=== PATIENT | male | born 1935 | race Caucasian/White ===

== ENCOUNTER 2016-12-30 17:59 | Inpatient (IN) | payer MEDICARE, OTHER ==
[~2016-12-30] VITALS: Ht 180.3 cm; Wt 97.0 kg
[2016-12-30 18:31] LABS: HEMOGLOBIN 12.3 gm/dl (14.0-17.5); RED BLOOD COUNT 4.09 M/UL (4.20-5.50)
[2016-12-30 18:32] LABS: WHITE BLOOD COUNT 33.9 K/UL (4.5-11.0)
[2016-12-30] MEDS ORDERED: PRILOSEC OTC20 MG PO (21:56)
[2016-12-30] MEDS ORDERED: SYNTHROID 88 M88 MCG PO (21:57)
[2016-12-30] MEDS ORDERED: LASIX20 MG PO (21:58)
[2016-12-30] MEDS ORDERED: DILTIAZEM ER300 M1 PO (21:58)
[2016-12-30] MEDS ORDERED: DIABETA 5 MG TAB5 MG PO (21:59)
[2016-12-30] MEDS ORDERED: LISINOPRIL40 MG PO (22:00)
[2016-12-30] MEDS ORDERED: PROAIR HFA8.5 GM INH (22:00)
[2016-12-31 05:05] LABS: HEMOGLOBIN 10.9 gm/dl (14.0-17.5); RED BLOOD COUNT 3.7 M/UL (4.20-5.50)
[2016-12-31 05:07] LABS: WHITE BLOOD COUNT 18.7 K/UL (4.5-11.0)
[2017-01-01 04:43] LABS: HEMOGLOBIN 10.7 gm/dl (14.0-17.5); RED BLOOD COUNT 3.61 M/UL (4.20-5.50); WHITE BLOOD COUNT 18.6 K/UL (4.5-11.0)
[2017-01-02 05:10] LABS: HEMOGLOBIN 10.1 gm/dl (14.0-17.5); RED BLOOD COUNT 3.46 M/UL (4.20-5.50); WHITE BLOOD COUNT 17.8 K/UL (4.5-11.0)
[2017-01-02 05:28] LABS: BUN/CREATININE RATIO 25 (0-10)
[2017-01-03 04:17] LABS: RED BLOOD COUNT 3.39 M/UL (4.20-5.50)
[2017-01-03 04:21] LABS: WHITE BLOOD COUNT 12.2 K/UL (4.5-11.0)
[2017-01-04 04:04] LABS: HEMOGLOBIN 10.2 gm/dl (14.0-17.5); RED BLOOD COUNT 3.5 M/UL (4.20-5.50); WHITE BLOOD COUNT 11.2 K/UL (4.5-11.0)
[2017-01-05 04:00] LABS: HEMOGLOBIN 10.5 gm/dl (14.0-17.5); RED BLOOD COUNT 3.55 M/UL (4.20-5.50); WHITE BLOOD COUNT 12.2 K/UL (4.5-11.0)
[2017-01-06 04:34] LABS: HEMOGLOBIN 10.2 gm/dl (14.0-17.5); RED BLOOD COUNT 3.49 M/UL (4.20-5.50); WHITE BLOOD COUNT 12.8 K/UL (4.5-11.0)
[2017-01-07 03:45] LABS: HEMOGLOBIN 10.3 gm/dl (14.0-17.5); RED BLOOD COUNT 3.51 M/UL (4.20-5.50); WHITE BLOOD COUNT 12.4 K/UL (4.5-11.0)
[2017-01-07 04:11] LABS: BUN/CREATININE RATIO 43 (0-10)
[2017-01-08 03:40] LABS: HEMOGLOBIN 10.6 gm/dl (14.0-17.5); RED BLOOD COUNT 3.58 M/UL (4.20-5.50); WHITE BLOOD COUNT 12.9 K/UL (4.5-11.0)
[2017-01-08 03:56] LABS: BUN/CREATININE RATIO 40 (0-10)
[2017-01-09 03:34] LABS: HEMOGLOBIN 10.6 gm/dl (14.0-17.5); RED BLOOD COUNT 3.62 M/UL (4.20-5.50); WHITE BLOOD COUNT 13.3 K/UL (4.5-11.0)
[2017-01-09 03:59] LABS: BUN/CREATININE RATIO 40 (0-10)
[2017-01-10 03:54] LABS: HEMOGLOBIN 10.5 gm/dl (14.0-17.5); RED BLOOD COUNT 3.53 M/UL (4.20-5.50); WHITE BLOOD COUNT 15.1 K/UL (4.5-11.0)
[2017-01-10 04:05] LABS: BUN/CREATININE RATIO 40 (0-10)
[2017-01-11 03:18] LABS: HEMOGLOBIN 10.2 gm/dl (14.0-17.5); RED BLOOD COUNT 3.49 M/UL (4.20-5.50); WHITE BLOOD COUNT 13.5 K/UL (4.5-11.0)
[2017-01-11 03:50] LABS: BUN/CREATININE RATIO 41 (0-10)
[2017-01-12 03:38] LABS: HEMOGLOBIN 10.4 gm/dl (14.0-17.5); RED BLOOD COUNT 3.58 M/UL (4.20-5.50); WHITE BLOOD COUNT 14.7 K/UL (4.5-11.0)
[2017-01-12 03:58] LABS: BUN/CREATININE RATIO 42 (0-10)
[2017-01-13 03:52] LABS: HEMOGLOBIN 9.9 gm/dl (14.0-17.5); RED BLOOD COUNT 3.41 M/UL (4.20-5.50)
[2017-01-13 04:13] LABS: BUN/CREATININE RATIO 41 (0-10)
[2017-01-14 04:02] LABS: HEMOGLOBIN 9.8 gm/dl (14.0-17.5); RED BLOOD COUNT 3.35 M/UL (4.20-5.50); WHITE BLOOD COUNT 12.3 K/UL (4.5-11.0)
[2017-01-14 04:25] LABS: BUN/CREATININE RATIO 38 (0-10)
== END 2017-01-14 15:11 | DRG 4 ==
LOC: ER1 17:59 → ZEROF 19:06 → CCU 19:06
PROVIDERS: Family Medicine; Hospitalist; Internal Medicine; Internal Medicine Gastroenterology; Internal Medicine Infectious Disease; Internal Medicine Pulmonary Disease; Surgery; ADMIT Internal Medicine
PROC: 5A1955Z Respiratory Ventilation, Greater than 96 Consecutive Hours (ICD-10-PCS; 2016-12-30)
PROC: 0BH17EZ Insertion of Endotracheal Airway into Trachea, Via Natural or Artificial Opening (ICD-10-PCS; 2016-12-30)
PROC: 05HM33Z Insertion of Infusion Device into Right Internal Jugular Vein, Percutaneous Approach (ICD-10-PCS; 2016-12-31)
PROC: B543ZZA Ultrasonography of Right Jugular Veins, Guidance (ICD-10-PCS; 2016-12-31)
PROC: 0DH63UZ Insertion of Feeding Device into Stomach, Percutaneous Approach (ICD-10-PCS; 2017-01-12)
PROC: 0DJ08ZZ Inspection of Upper Intestinal Tract, Via Natural or Artificial Opening Endoscopic (ICD-10-PCS; 2017-01-12)
PROC: 0B113F4 Bypass Trachea to Cutaneous with Tracheostomy Device, Percutaneous Approach (ICD-10-PCS; principal; 2017-01-12 08:00)
DX: A41.89 Other specified sepsis (principal); J09.X1 Influenza due to identified novel influenza A virus with pneumonia; J15.211 Pneumonia due to Methicillin susceptible Staphylococcus aureus; R65.21 Severe sepsis with septic shock; J96.22 Acute and chronic respiratory failure with hypercapnia; J96.21 Acute and chronic respiratory failure with hypoxia; G92 Toxic encephalopathy; E43 Unspecified severe protein-calorie malnutrition; Z99.11 Dependence on respirator [ventilator] status; N17.9 Acute kidney failure, unspecified; E87.1 Hypo-osmolality and hyponatremia; E87.0 Hyperosmolality and hypernatremia; E87.4 Mixed disorder of acid-base balance; J44.9 Chronic obstructive pulmonary disease, unspecified; E87.5 Hyperkalemia; E11.65 Type 2 diabetes mellitus with hyperglycemia; I10 Essential (primary) hypertension; E87.70 Fluid overload, unspecified; E03.9 Hypothyroidism, unspecified; D64.9 Anemia, unspecified; I48.2 Chronic atrial fibrillation; E78.5 Hyperlipidemia, unspecified; I08.1 Rheumatic disorders of both mitral and tricuspid valves; R13.10 Dysphagia, unspecified; T42.4X5A Adverse effect of benzodiazepines, initial encounter; K21.9 Gastro-esophageal reflux disease without esophagitis; R19.7 Diarrhea, unspecified; R74.8 Abnormal levels of other serum enzymes; Z85.118 Personal history of other malignant neoplasm of bronchus and lung; Z87.891 Personal history of nicotine dependence; Z79.84 Long term (current) use of oral hypoglycemic drugs; Z79.899 Other long term (current) drug therapy; Z96.653 Presence of artificial knee joint, bilateral; Z90.2 Acquired absence of lung [part of]; Z98.890 Other specified postprocedural states; Z68.29 Body mass index [BMI] 29.0-29.9, adult
CPT/HCPCS: ECHO; 31500; 36415; 36600; 51702; 70450; 71010; 71250; 74000; 80048; 80053; 80162; 80202; 82550; 82553; 82607; 82803; 82962; 83605; 83874; 83880; 84439; 84443; 84484; 85025; 85027; 85610; 85730; 86140; 87040; 87070; 87077; 87186; 87205; 87278; 93005; 93306; 94002; 94003; 94640; 94668; 95819; 96374; 96375; 96376; 99291; A4628; C1751; C9113; J0295; J0360; J0690; J0696; J1120; J1160; J1650; J1940; J1956; J2250; J2370; J2543; J3010; J3370; J7030; J7040; J7050; J7070; J7120